=== PATIENT | male | born 1975 ===

== ENCOUNTER 2018-09-18 09:28 | Emergency (ER) | payer OTHER ==
[2018-09-18] MEDS ORDERED: Ondansetron ODT TAB* 4 MG PO ONE (09:41)
[2018-09-18 09:45] VITALS: BP 151/96
[2018-09-18] MEDS ORDERED: Meclizine TAB* 12.5 MG PO ONE (10:14)
[2018-09-18] MEDS ORDERED: NS 0.9% 1000 ML* 1,000 ML IV SCH (10:15)
--- NOTE | 2018-09-18 10:21 | UC ---
Dizzy HPI HPI Summary: PATIENT WAS FEELING WELL YESTERDAY AND THIS MORNING WHEN HE WOKE UP. AFTER SHOWERING AND TAKING HIS MORNING MEDICATIONS HE SUDDENLY DEVELOPED A SENSATION OF DIZZINESS AND THAT THE ROOM WAS SPINNING AROUND HIM. HE DESCRIBES A KALEIDOSCOPE LIKE VISUAL DISTURBANCE. HIS DIZZINESS PERSISTED ON HIS DRIVE TO WORK. PATIENT HAD 4 EPISODES OF EMESIS AND THEN CAME TO FOR FURTHER EVALUATION. 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 NO PREVIOUS SIMILAR EPISODES. NO HEAD INJURY. FEELS UNSTEADY ON HIS FEET. - History Of Current Complaint Chief Complaint: UCGI Stated Complaint: VOMITING DIZZY Time Seen by Provider: 09/18/18 09:40 Hx Obtained From: Patient Onset/Duration: Sudden Onset, Lasting Hours, Still Present Timing: Constant Severity Initially: Moderate Severity Currently: Moderate Pain Intensity: 0 Pain Scale Used: 0-10 Numeric Character: Room Spinning, Dizzy Aggravating Factor(s): Change In Head Position Alleviating Factor(s): Nothing Associated Signs And Symptoms: Positive: Nausea, Vomiting, Unsteady Gait, Visual Changes. Negative: Chest Pain, SOB, Palpitations - Allergies/Home Medications Allergies/Adverse Reactions: Allergies Allergy/AdvReac Type Severity Reaction Status Date / Time No Known Allergies Allergy Verified 09/18/18 09:45 Home Medications: Home Medications Albuterol HFA INHALER* [Ventolin HFA Inhaler*] 1 puff INH Q4H PRN 09/18/18 [ History Confirmed 09/18/18] Amlodipine Besylate [Norvasc 5 mg tab] 5 mg PO DAILY 09/18/18 [History Confirmed 09/18/18] Atorvastatin* [Lipitor*] 10 mg PO 1700 09/18/18 [History Confirmed 09/18/18] Budesonide/Formote 160/4.5(NF) [Symbicort 160/4.5 (NF)] 2 puff INH BID 09/18/18 [History Confirmed 09/18/18] Cholecalciferol TAB* [Vitamin D TAB*] 2,000 unit PO DAILY 09/18/18 [History Confirmed 09/18/18] Fenofibrate 150 mg PO 09/18/18 [History] Irbesartan [Avapro] 300 mg PO 09/18/18 [History] Multivitamin [Multivitamins] 1 cap PO 09/18/18 [History] Omeprazole 40 mg PO 09/18/18 [History] Tiotropium CAP.INH* [Spiriva CAP.INH*] 1 cap.inh INH DAILY 09/18/18 [History Confirmed 09/18/18] Ubidecarenone [Coq10] 100 mg PO 09/18/18 [History] PMH/Surg Hx/FS Hx/Imm Hx Endocrine History: Dyslipidemia Cardiovascular History: Hypertension Respiratory History: Asthma - Surgical History Surgical History: None - Family History Known Family History: Positive: Cardiac Disease, Hypertension - Social History Alcohol Use: Occasionally Substance Use Type: None Smoking Status (MU): Never Smoked Tobacco Review of Systems All Other Systems Reviewed And Are Negative: Yes Constitutional: Negative: Fever Respiratory: Positive: Negative Cardiovascular: Positive: Negative Gastrointestinal: Positive: Vomiting, Nausea Neurological: Positive: Other - VERTIGO Physical Exam Triage Information Reviewed: Yes Appearance: No Pain Distress, Well-Nourished, Ill-Appearing - MODERATE. PT HUNCHED OVER IN WHEELCHAIR HOLDING HEAD AND GRIMACING Vital Signs: Initial Vital Signs Temp 97.1 F 09/18/18 09:38 Pulse 82 09/18/18 09:38 Resp 18 09/18/18 09:38 BP 151/96 09/18/18 09:38 Pulse Ox 96 09/18/18 09:38 Vital Signs Reviewed: Yes Eyes: Positive: Conjunctiva Clear ENT: Positive: Hearing grossly normal Neck: Positive: Supple Respiratory Exam: Normal Cardiovascular Exam: Normal Abdomen Description: Positive: Soft Musculoskeletal: Positive: No Edema Neurological: Positive: Alert Psychological: Positive: Age Appropriate Behavior Skin: Negative: Rashes Diagnostics - EKG Cardiac Rate: NL - 75 BPM Cardiac Rhythm: Sinus: Normal Ectopy: None ST Segment: Normal Dizzy Course/Dx - Course Course Of Treatment: PT WITH SUDDEN ONSET OF VERTIGO, N/V. NO PRIOR HISTORY OF SIMILAR SX. NO HEAD INJURY OR OTHER CLEAR REASON FOR DEVELOPING THESE SX. PT REQUIRES HIGHER LEVEL OF CARE THAN WHAT WE CAN PROVIDE IN THE . TO [facility]. - Differential Dx/Diagnosis Provider Diagnosis: Vertigo - Physician Notifications Discussed Patient Care With: Tim Jamison - TO [facility] Time Discussed With Above Provider: 10:20 Discharge - Sign-Out/Discharge Documenting (check all that apply): Patient Departure All imaging exams completed and their final reports reviewed: No Studies - Discharge Plan Condition: Stable Disposition: TRANS HIGHER LVL OF CARE FAC Referrals: No Primary Care Phys,NOPCP [Primary Care Provider] - - Billing Disposition and Condition Condition: STABLE Disposition: Trans Higher Lvl of Care Fac
== END 2018-09-18 10:31 | disposition short-term general hospital (02) ==
LOC: UCEAST 09:28
DX: R42 Dizziness and giddiness (principal); I10 Essential (primary) hypertension; E78.5 Hyperlipidemia, unspecified; J45.909 Unspecified asthma, uncomplicated
CPT/HCPCS: 93005; 96360; 99203; A9270-GY; G0463

== ENCOUNTER 2018-09-18 10:49 | Emergency (ER) | payer OTHER ==
[2018-09-18] MEDS ORDERED: DiMENhydriNATE IV* 50 MG/ML VIAL IV PUSH ONE ×2 (10:51→11:00)
[2018-09-18] MEDS ORDERED: NS 0.9% 1000 ML* 1,000 ML IV ONE (10:51)
--- NOTE | 2018-09-18 11:10 | ED ---
Dizziness - HPI Summary HPI Summary: Pt is a 43 y/o male brought in by EMS who presents to the ED c/o dizziness. He was sent here from the . At 7:30 this morning he became dizzy after taking a shower. While driving to work, his vision became like a kaleidoscope with the room spinning. Pt became nauseated and had an episode of emesis while at work. He then took his BP which was 140/90. He notes that his gait was unsteady due to his dizziness. Pt was nauseated on the ride here. He was given Zofran and Meclizine which improved his symptoms. Pt denies any double vision, numbness, weakness, aphasia, cough, ear ache, congestion, or tinnitus. His ears were clogged last week but are now fine. PMHx HTN, HLD. - History Of Current Complaint Stated Complaint: DIZZINESS Time Seen by Provider: 09/18/18 10:50 Hx Obtained From: Patient, EMS Onset/Duration: Resolved Timing: Hours - 7:30 this morning Severity Currently: None Character: Room Spinning, Dizzy Alleviating Factor(s): Other - Zofran, meclizine Associated Signs And Symptoms: Positive: Nausea, Vomiting, Unsteady Gait, Visual Changes. Negative: Tinnitus, Slurred Speech - Allergies/Home Medications Allergies/Adverse Reactions: Allergies Allergy/AdvReac Type Severity Reaction Status Date / Time No Known Allergies Allergy Verified 09/18/18 09:45 Home Medications: Home Medications Fenofibrate 150 mg PO DAILY 09/18/18 [History Confirmed 09/18/18] Irbesartan [Avapro] 300 mg PO DAILY 09/18/18 [History Confirmed 09/18/18] Multivitamins/Minerals TAB* [Theragran/minerals TAB*] 1 tab PO DAILY 09/18/18 [ History Confirmed 09/18/18] Omeprazole CAP* [Prilosec CAP* 20 MG] 40 mg PO DAILY 09/18/18 [History Confirmed 09/18/18] Ubidecarenone [Co Q-10] 100 mg PO DAILY 09/18/18 [History Confirmed 09/18/18] amLODIPine TAB* [Norvasc 5 mg TAB*] 5 mg PO DAILY 09/18/18 [History Confirmed ] PMH/Surg Hx/FS Hx/Imm Hx Cardiovascular History: Reports: Hx Hypercholesterolemia, Hx Hypertension Respiratory History: Reports: Hx Asthma Infectious Disease History: No Infectious Disease History: Reports: Hx Hepatitis - hep a as a chil,d Denies: Traveled Outside the [place] in Last 30 Days - Family History Known Family History: Positive: Cardiac Disease, Hypertension - Social History Alcohol Use: Occasionally Hx Substance Use: No Substance Use Type: Reports: None Hx Tobacco Use: No Smoking Status (MU): Never Smoked Tobacco Review of Systems Negative: Diplopia Positive: Other - ears clogged, NEGATIVE: tinnitus. Negative: Ear Ache, Nasal Discharge Negative: Cough Positive: Vomiting, Nausea Neurological: Other - Dizziness, unsteady gait Negative: Weakness, Numbness All Other Systems Reviewed And Are Negative: Yes Physical Exam - Summary Physical Exam Summary: Appearance: Well appearing, no pain distress Skin: warm, dry, reflects adequate perfusion Head/face: normal Eyes: EOMI, WILMA ENT: mucous membranes moist, no fluid in ears, positive Maurice-Hallpike to the left Neck: supple, non-tender Respiratory: CTA, breath sounds present Cardiovascular: RRR, pulses symmetrical Abdomen: non-tender, soft Bowel Sounds: present Musculoskeletal: normal, strength/ROM intact Neuro: normal, sensory motor intact, A&Ox3 Triage Information Reviewed: Yes Vital Signs On Initial Exam: Initial Vitals Temp Pulse Resp BP Pulse Ox 97.2 F 77 18 154/99 99 09/18/18 10:50 09/18/18 10:50 09/18/18 10:50 09/18/18 10:50 09/18/18 10:50 Vital Signs Reviewed: Yes Diagnostics - Vital Signs Vital Signs Temp Pulse Resp BP Pulse Ox 09/18/18 10:50 97.2 F 77 18 154/99 99 - Laboratory Result Diagrams: 09/18/18 11:21 09/18/18 11:21 Lab Statement: Any lab studies that have been ordered have been reviewed, and results considered in the medical decision making process. - EKG 10:18 Cardiac Rate: NL - 75 bpm EKG Rhythm: Sinus Rhythm ST Segment: Normal Summary of EKG Findings: Reviewed from UC, nl axis, nl interval Re-Evaluation - Re-Evaluation First Eval Change: Improved - sx resolved Dizzy Course/Dx - Course Course Of Treatment: Nurse's note reviewed. Patient presents with abrupt onset of vertigo. Positive Hallpike to the left. No URI or sinus symptoms. Ears are clear. No other neurologic signs or symptoms. Treated with IV fluids, meclizine orally and IV Dramamine. This completely result his symptoms. 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 - Diagnoses Differential Diagnosis/HQI/PQRI: Benign Paroxysmal Positional Vertigo, Hypovolemia, Labyrinthitis, Metabolic Abnormality, Transient Ischemic Attack Provider Diagnoses: Peripheral vertigo Discharge - Sign-Out/Discharge Documenting (check all that apply): Patient Departure - Discharge - Discharge Plan Condition: Improved Disposition: HOME Prescriptions: Meclizine HCl [Motion Sickness II] 25 mg PO QID PRN #30 tablet PRN Reason: Dizziness Patient Education Materials: Vertigo (ED) Forms: *Work Release Referrals: [facility] [Outside] [facility] [Outside] Additional Instructions: Do not drive. Off work today. Return with numbness/weakness, severe headache, persistent or severe dizziness, worse or other concerns. - Billing Disposition and Condition Condition: IMPROVED Disposition: Home - Attestation Statements Document Initiated by Scribe: Yes Documenting Scribe: Laurel Bynum Provider For Whom Scribe is Documenting (Include Credential): Kang Singleton MD Scribe Attestation: Laurel Matta scribed for Kang Singleton MD on 09/18/18 at 1226. Scribe Documentation Reviewed: Yes Provider Attestation: The documentation as recorded by the Laurel rivers accurately reflects the service I personally performed and the decisions made by , Kang Singleton MD Status of Scribe Document: Viewed
[2018-09-18 11:33] LABS: ABS Basophils 0 10^3/ul (0-0.2); ABS Eosinophils 0 10^3/ul (0-0.6); ABS Lymphocytes 1.4 10^3/ul (1.0-4.8); ABS Monocytes 0.5 10^3/ul (0-0.8); ABS Neutrophils 4.3 10^3/ul (1.5-7.7); ABS Nucleated RBC 0 10^3/ul; Eosinophil % 0.3 %; Hematocrit 39 % (42-52); Hemoglobin 13.3 g/dl (14.0-18.0); Mean Corpuscular HGB Conc 34 g/dl (31-36); Mean Corpuscular Hemoglobin 30 pg (27-31); Mean Corpuscular Volume 87 fL (80-94); Nucleated Red Blood Cells % 0.1; Platelet Count 196 10^3/ul (150-450); Red Blood Count 4.47 10^6/ul (4.00-5.40); Red Cell Distribution Width 14 % (10.5-15); White Blood Count 6.1 10^3/ul (3.5-10.8)
[2018-09-18 13:04] VITALS: BP 150/102
== END 2018-09-18 13:03 | disposition home or self-care (01) ==
LOC: ED 10:49
DX: H81.399 Other peripheral vertigo, unspecified ear (principal); I10 Essential (primary) hypertension
CPT/HCPCS: 36415; 80048; 84484; 85025; 96374; 99283; J1240